=== PATIENT | female | born 1965 | race Caucasian/White ===

== ENCOUNTER → 2017-02-04 | Outpatient (CLI) | payer BC ==
[~2017-02-04] MED LIST: ABILIFY PO; ALBUTEROL17 GM INH; AMITRYPTYLINE PO; ATARAX PO; ATENOLOL PO; AVANDAMET 2 MG/1 TA1 PO; AZITHROMYCIN250 MG PO; BAYER ASPIRIN325 M1 PO; DARVOCET-N 1001 TAB PO; DAY TIME COLD1 EACH PO; DEPO-PROVER150 MG/ML IM; DEPO-PROVER150 MG/ML INJ; DESYREL50 MG PO; DOXYCYCLINE HY100 M1 PO; DOXYCYCLINE PO; EFFEXOR PO; EFFEXOR XR PO; FISH OIL 1,0001 CA2; FLAGYL250 MG PO; GLUCOPHAGE XR500 MG PO; GLUCOPHAGE500 M1 PO; HYCODAN60 ML 5MG/ PO; IBUPROFEN PO; IMITREX50 MG PO; KETOPROFEN PO; LISINOPRIL2.5 MG PO; LORTAB 10-5001 EACH PO; LYRICA; LYRICA75 MG PO; MAGNESIUM OXID200 MG PO; MELATONIN10 M1; METFORMIN; METFORMIN HCL500 M1 PO; METFORMIN PO; MINIPRESS1 MG PO; MULTI VITAMIN1 EACH PO; NORFLEX100 M1 PO; ONDANSETRON ODT4 MG PO; ORTHO TRI-7 DAYS X PO; PATIENT'S PHARMACY; PAXIL40 MG PO; PERCOCET5/325 PO; PROZASIN PO; SAVELLA50 MG; TOPAMAX25 MG PO; TUSSIONEX PENN473 ML PO; TYLOX 5/500 CAP1 CAP PO; VICODIN 5/500 T1 TAB PO; VOLTAREN75 MG PO; ZANTAC150 MG PO; ZESTRIL2.5 M1 PO; ZESTRIL2.5 MG PO; ZOCOR20 MG PO; ZOLOFT; ZONEGRAN25 MG
--- NOTE | ~2017-02-04 | MY7 ---
[facility] A Service of [facility] & [facility] RADIOLOGY TEXT RESULTS PATIENT: GALINDO KITCHEN LOCATION: [facility] : [birth year] UNIT #: [id number] AGE: [address]: KARLEY SHIELDS MD SEX: F ORDER DR: [id number] [facility] [address] [place] [address]. [place], [place] [address] [id number] O MR#: [id number] Acc #: [id number] NAME: GALINDO KITCHEN. : 1965 SEX: F STUDY DATE/TIME: 02/04/2017 8:49 UNIT: [facility] ROOM: STUDY DESCRIPTION: MY Mammogram Dx Dig Lt Attending Physician: Karley Shields Referring Physician: Karley Shields Ordering Physician: Physician Non-Staff Primary Care Physician: Forrest Schofield M.D. MEDICAL IMAGING REPORT This report is preliminary unless electronic signature is present EXAM Left digital diagnostic mammogram. COMPARISON July 30, 2016, May 28, 2015, and April 17, 2009. INDICATION 54-year-old female who reports a pea-sized left breast lump for 4 days. She denies personal or family history of breast cancer. FINDINGS There are scattered fibroglandular densities in the left breast. There are no suspicious findings in the left breast on mammography. Focused sonographic evaluation of the area of patient concern was performed. She identified this to be at the 1 o'clock position of the left breast approximately 20 cm from the nipple. I personally performed physical exam in the area of concern. There is fibroglandular nodularity palpable throughout this area without a discrete suspicious palpable mass or suspicious overlying skin change. Sonographic evaluation throughout the area of concern was negative. This was performed from approximately the 12-2 o'clock positions of the left breast spanning over a distance from approximately 10 to 20 cm from the nipple. IMPRESSION No mammographic or sonographic evidence of malignancy in the left breast. In the area of patient concern, there are only normal fat lobules. In the absence of new or worsening breast complaints, continued annual screen mammography is recommended. Findings and recommendations were discussed with the patient upon termination of today's exam and she was instructed to report any new or worsening complaint to her primary care physician. Patients over the age of 40 are entered into a reminder system with target STS. [facility] A Service of [facility] & [facility] RADIOLOGY TEXT RESULTS PATIENT: GALINDO KITCHEN LOCATION: [facility] : 69 UNIT #: [id number] AGE: [address]: KARLEY SHIELDS MD SEX: F ORDER DR: due date for the next mammogram. A result letter will also be sent to the patient. BIRADS: 1 Negative Dictated by... Yayo Bradshaw M.D. THIS IS AN ELECTRONICALLY VERIFIED REPORT Yayo Bradshaw M.D. at 02/06/2017 4:32 PM Jayson TD: 02/04/2017 10:51 JOB #: [id number] MEDICAL IMAGING REPORT Page 1 of 1 COPY
--- NOTE | ~2017-02-04 | US24 ---
[facility] A Service of [facility] RADIOLOGY TEXT RESULTS PATIENT: GALINDO KITCHEN LOCATION: [facility] : [birth year] UNIT #: [id number] AGE: [address]: KARLEY SHIELDS MD SEX: F ORDER DR: [id number] [place] [id number] [facility]. [place], [place] [address] [id number] O MR#: [id number] Acc #: [id number] NAME: GALINDO KITCHEN. : 1965 SEX: F STUDY DATE/TIME: 02/04/2017 9:31 UNIT: [facility] ROOM: STUDY DESCRIPTION: US Breast Unilateral Attending Physician: Karley Shields Referring Physician: Karley Shields Ordering Physician: Physician Non-Staff Primary Care Physician: Forrest Schofield M.D. MEDICAL IMAGING REPORT This report is preliminary unless electronic signature is present EXAM Left breast ultrasound COMPARISON Left diagnostic mammogram on the same date as well as other mammograms dated July 30, 2016; May 28, 2015 and April 17, 2009. INDICATION 52-year-old female with a pea-sized palpable lump in the left breast for 4 days. FINDINGS/IMPRESSION Please see separately dictated report of left diagnostic mammography on the same date for full sonographic findings in left breast today as well as final impression and recommendations. Patients over the age of 40 are entered into a reminder system with target due date for the next mammogram. A result letter will also be sent to the patient. BIRADS: 1 Negative Dictated by... Yayo Bradshaw M.D. THIS IS AN ELECTRONICALLY VERIFIED REPORT Yayo Bradshaw M.D. at 02/06/2017 4:33 PM Frances TD: 02/04/2017 10:46 JOB #: [id number] MEDICAL IMAGING REPORT [facility] A Service of [facility] & [facility] RADIOLOGY TEXT RESULTS PATIENT: GALINDO KITCHEN LOCATION: [facility] : 69 UNIT #: [id number] AGE: [address]: KARLEY SHIELDS MD SEX: F ORDER DR: Page 1 of 1 COPY
== END | disposition home or self-care (01) ==
LOC: CMAM 08:40
DX: N63 Unspecified lump in breast (principal)
CPT/HCPCS: 76641; G0206